=== PATIENT | female | born 1955 | race Caucasian/White ===

== ENCOUNTER 2018-05-24 16:58 | Inpatient (IN) | payer OTHER ==
[~2018-05-24 16:58] MED LIST: NA BICARBONATE 8.4% 50 ML SYG
[2018-05-24 17:30] LABS: WHITE BLOOD COUNT 19.8 10^3/ul (4.8-10.8)
[2018-05-24 17:30] LABS: ABNORMAL IP MESSAGE 1; HEMATOCRIT 29.7 % (37.0-47.0); HEMOGLOBIN 8.8 g/dl (12.0-16.0); MEAN CORPUSCULAR HEMOGLOBIN 28.9 pg (29.0-33.0); MEAN CORPUSCULAR HGB CONC 29.6 g/dl (32.0-37.0); MEAN CORPUSCULAR VOLUME 97.4 fl (82.0-101.0); MEAN PLATELET VOLUME 9.3 fl (7.4-10.4); PLATELET COUNT 473 10^3/UL (140-415); RED BLOOD COUNT 3.05 10^6/ul (4.20-5.40); RED CELL DISTRIBUTION WIDTH 13.7 % (11.5-14.5)
[2018-05-24] MEDS ORDERED: FENTAnyl 50 MCG/ML VIAL IV (17:30)
[2018-05-24] MEDS: VANCOMYCIN 1 GM (PMX) 250 ML IVPB (17:30)
[2018-05-24 17:40] LABS: POSITIVE DIFF @See below
[2018-05-24 17:41] LABS: ADD MAN DIFF? YES
[2018-05-24 17:49] LABS: ALANINE AMINOTRANSFERASE 48 IU/L (13-69); ALBUMIN 2.9 g/dl (3.3-4.9); ALBUMIN/GLOBULIN RATIO 0.87; ALKALINE PHOSPHATASE 358 IU/L (42-121); ANION GAP 15 (8-16); ASPARTATE AMINO TRANSFERASE 52 IU/L (15-46); BILIRUBIN,INDIRECT 0.2 mg/dl (0-1.1); BILIRUBIN,TOTAL 0.2 mg/dl (0.2-1.3); BLOOD UREA NITROGEN 35 mg/dl (7-20); CALCIUM 8.6 mg/dl (8.4-10.2); CARBON DIOXIDE 31 mmol/L (21-31); CHLORIDE 99 mmol/L (97-110); GLUCOSE 295 mg/dl (70-220); MAGNESIUM 2.1 mg/dl (1.7-2.5); PHOSPHORUS 6.4 mg/dl (2.5-4.9); POTASSIUM 4.4 mmol/L (3.5-5.1); SODIUM 141 mmol/L (135-144); TOTAL PROTEIN 6.2 g/dl (6.1-8.1)
[2018-05-24 17:51] LABS: INR 1.05; PROTIME 13.8 Sec (11.9-14.9); PT RATIO 1.1
[2018-05-24 17:52] LABS: ADD UMIC YES; PARTIAL THROMBOPLASTIN TIME 42.7 Sec (25.0-35.0); UR ASCORBIC ACID 40 mg/dL (NEGATIVE); UR BILIRUBIN (Dip) NEGATIVE (NEGATIVE); UR BLOOD (Dip) NEGATIVE (NEGATIVE); UR BUDDING YEAST FEW /HPF (NONE SEEN); UR CLARITY SLIGHTLY CLOUDY (CLEAR); UR COLOR AMBER (YELLOW); UR GLUCOSE (Dip) 2+ mg/dL (NEGATIVE); UR KETONES (Dip) NEGATIVE (NEGATIVE); UR LEUKOCYTE ESTERASE (Dip) NEGATIVE Leu/ul (NEGATIVE); UR MUCUS MODERATE /HPF (NONE SEEN); UR NITRITE (Dip) NEGATIVE (NEGATIVE); UR RBC 5 /HPF (0-5); UR SPECIFIC GRAVITY (Dip) 1.034 (1.003-1.030); UR SQUAMOUS EPITHELIAL CELL FEW /HPF (FEW); UR TOTAL PROTEIN (Dip) 2+ mg/dl (NEGATIVE); UR UROBILINOGEN (Dip) 2+ mg/dL (NEGATIVE); UR WBC 5 /HPF (0-5)
[2018-05-24 17:53] LABS: LACTIC ACID 6.6 mmol/L (0.5-2.0)
[2018-05-24] MEDS: SODIUM CHLORIDE 0.9% 500 ML BAG IV* (17:53)
[2018-05-24] MEDS: SODIUM CHLORIDE 0.9% 1L BAG IV* (17:53)
[2018-05-24 18:02] LABS: TROPONIN-I < 0.010 ng/ml (0.000-0.120)
[2018-05-24] MEDS: CEFEPIME 2GM/50 ML (PMX) 50 ML IVPB (18:02)
[2018-05-24] MEDS: IOHEXOL 100 ML (18:07)
[2018-05-24 18:10] LABS: Allen Test ACCEPTAB; Arterial Base Excess 10.2 mmol/L (-3.0-3); Arterial Blood Gas Oxygen Sat 99.2 mmHG (95.0-98.0); Arterial COHb 0.3 % (0.0-3.0); Arterial Fraction of Oxyhgb 98.6 % (93.0-99.0); Arterial HCO3 35.5 mmol/L (22.0-26.0); Arterial MetHb 0.3 % (0.0-1.5); Arterial pCO2 52.8 mmhg (35-45); MODE VENT - AC; Site Right Radial
[2018-05-24] MEDS: SOD CHLORIDE 0.9% 100 ML (18:28)
[2018-05-24] MEDS: IOHEXOL 350MG/ML 50 ML BTL (18:28)
[2018-05-24] MEDS: ACCU-CHEK XX ×6 (18:30→23:43)
[2018-05-24] MEDS ORDERED: DEXTROSE 50% 50 ML SYRINGE IV ×2 (18:30)
[2018-05-24 19:44] LABS: ANISOCYTOSIS 1+ (0-0); BAND NEUTROPHILS #M 0.9 10^3/ul (0.0-0.6); BAND NEUTROPHILS % (M) 5 % (0-4); ERYTHROBLAST% (NRBC) (M) 1 % (0-0); LYMPHOCYTES #M 2.3 10^3/ul (0.8-2.9); LYMPHOCYTES % (M) 12 % (15-51); METAMYELOCYTES #M 0.1 10^3/ul (0.0-0.0); METAMYELOCYTES %M 1 % (0-0); MONOCYTE #M 1.7 10^3/ul (0.3-0.9); MONOCYTES % (M) 9 % (0-11); MYELOCYTES #M 0.9 10^3/ul (0.0-0.0); MYELOCYTES % (M) 5 % (0-0); PLATELET MORPHOLOGY COMMENT @See below; POLYCHROMASIA 1+ (0-0); REACTIVE LYMPHOCYTES #M 0.5 10^3/ul (0.0-0.0); REACTIVE LYMPHOCYTES% (M) 3 % (0-0); SEGMENTED NEUTROPHILS (M) % 65 % (39-77); SMUDGE%M 8 % (0-0)
[2018-05-24] MEDS: MIDAZOLAM (DRIP) 50 mg/50 mL 50 ML IV (19:55)
[2018-05-24] MEDS ORDERED: ACETAMINOPHEN 650MG/20.3ML CUP PO (20:00)
[2018-05-24] MEDS ORDERED: VANCOMYCIN IV PER PHARMACY XX (20:00)
[2018-05-24] MEDS ORDERED: ACETAMINOPHEN 650 MG SUPP PR (20:00)
[2018-05-24] MEDS ORDERED: MEPERIDINE 25 MG INJ IV (20:00)
[2018-05-24 20:18] LABS: AADO2 Arterial 272.3 mmHg (7.0-24.0); Allen Test ACCEPTAB; Arterial Base Excess 8.6 mmol/L (-3.0-3); Arterial COHb 0.3 % (0.0-3.0); Arterial Fraction of Oxyhgb 95.5 % (93.0-99.0); Arterial MetHb 0.2 % (0.0-1.5); Arterial Total Hemglobin 9.8 g/dl (12.0-18.0); MODE VENT - AC; Site Right Radial; Temperature 35.7 C
[2018-05-24 20:43] LABS: LACTIC ACID 1.5 mmol/L (0.5-2.0)
[2018-05-24] MEDS: VECURONIUM 100 MG in DEXTROSE 5% 100 ML IV (20:51)
[2018-05-24] MEDS: INSULIN HUMAN REGULAR 100 UNIT in SOD CHLORIDE 0.9% 99 ML IV (20:53)
[2018-05-24] MEDS: VANCOMYCIN 1.75 GM in SOD CHLORIDE 0.9% 500 ML IVPB (20:58)
[2018-05-24] MEDS: FUROSEMIDE 20 MG INJ IV (21:58)
[2018-05-25] MEDS: ACCU-CHEK XX ×24 (00:30→23:30)
[2018-05-25 01:15] LABS: LACTIC ACID 1.4 mmol/L (0.5-2.0)
[2018-05-25 01:51] LABS: Allen Test ACCEPTAB; Arterial MetHb 0 % (0.0-1.5); MODE VENT - AC; Site Right Radial
[2018-05-25 02:04] LABS: AADO2 Arterial 340.4 mmHg (7.0-24.0); Arterial Base Excess 11.8 mmol/L (-3.0-3); Arterial Blood Gas Oxygen Sat 94.6 mmHG (95.0-98.0); Arterial COHb 0 % (0.0-3.0); Arterial Fraction of Oxyhgb 94.6 % (93.0-99.0); Arterial HCO3 35.6 mmol/L (22.0-26.0); Arterial Total Hemglobin 10.4 g/dl (12.0-18.0); Arterial pCO2 36.3 mmhg (35-45)
[2018-05-25] MEDS: PIPER-TAZO 3.375 GM IV (PMX) 100 ML IVPB ×3 (02:29→18:04)
[2018-05-25] MEDS ORDERED: PENDING SANTYL ORDER FOR WOUND CARE XX (02:30)
[2018-05-25] MEDS: OCULAR LUBRICANT 3.5 GM OPH OINT BOTH EYES ×4 (03:38→17:42)
[2018-05-25] MEDS: ARTIFICIAL TEARS 15 ML OPH BOTH EYES ×4 (03:38→17:42)
[2018-05-25 03:43] LABS: ADD MAN DIFF? NO
[2018-05-25] MEDS: hydrALAzine 20 MG INJ IV (03:55)
[2018-05-25 04:00] LABS: BASOPHILS % 0.3 % (0.0-2.0); HEMATOCRIT 30.4 % (37.0-47.0); HEMOGLOBIN 9.6 g/dl (12.0-16.0); LYMPHOCYTES # 1.1 10^3/ul (0.8-2.9); LYMPHOCYTES % 7.6 % (15.0-51.0); MEAN CORPUSCULAR HEMOGLOBIN 29.3 pg (29.0-33.0); MEAN CORPUSCULAR HGB CONC 31.6 g/dl (32.0-37.0); MEAN CORPUSCULAR VOLUME 92.7 fl (82.0-101.0); MEAN PLATELET VOLUME 8.9 fl (7.4-10.4); MONOCYTE # 0.8 10^3/ul (0.3-0.9); MONOCYTES % 5.4 % (0.0-11.0); NEUTROPHIL # 12.2 10^3/ul (1.6-7.5); NEUTROPHILS % 84.9 % (39.0-77.0); PLATELET COUNT 453 10^3/UL (140-415); RED BLOOD COUNT 3.28 10^6/ul (4.20-5.40); RED CELL DISTRIBUTION WIDTH 13.4 % (11.5-14.5)
[2018-05-25 04:00] LABS: WHITE BLOOD COUNT 14.4 10^3/ul (4.8-10.8)
[2018-05-25 04:08] LABS: INR 1.04; PROTIME 13.7 Sec (11.9-14.9); PT RATIO 1.1
[2018-05-25 04:09] LABS: PARTIAL THROMBOPLASTIN TIME 41.5 Sec (25.0-35.0)
[2018-05-25 05:33] LABS: AMYLASE 41 U/L (11-123); ANION GAP 10 (8-16); BLOOD UREA NITROGEN 26 mg/dl (7-20); CALCIUM 8.8 mg/dl (8.4-10.2); CARBON DIOXIDE 38 mmol/L (21-31); CHLORIDE 98 mmol/L (97-110); CREATININE 0.41 mg/dl (0.44-1.00); GLUCOSE 207 mg/dl (70-220); MAGNESIUM 1.9 mg/dl (1.7-2.5); POTASSIUM 3.3 mmol/L (3.5-5.1); SODIUM 143 mmol/L (135-144)
[2018-05-25 05:34] LABS: LIPASE < 10 U/L (23-300)
[2018-05-25 05:44] LABS: TROPONIN-I 0.053 ng/ml (0.000-0.120)
[2018-05-25] MEDS: FUROSEMIDE 20 MG INJ IV ×2 (06:06→18:04)
[2018-05-25] MEDS: POTASSIUM CHLORIDE 50 ML IVPB ×4 (06:06→13:38)
[2018-05-25 06:59] LABS: ADD MAN DIFF? NO
[2018-05-25 07:09] LABS: BASOPHILS % 0.2 % (0.0-2.0); HEMATOCRIT 32.3 % (37.0-47.0); HEMOGLOBIN 9.8 g/dl (12.0-16.0); LYMPHOCYTES # 0.9 10^3/ul (0.8-2.9); MEAN CORPUSCULAR HEMOGLOBIN 28.2 pg (29.0-33.0); MEAN CORPUSCULAR HGB CONC 30.3 g/dl (32.0-37.0); MEAN CORPUSCULAR VOLUME 93.1 fl (82.0-101.0); MEAN PLATELET VOLUME 9.1 fl (7.4-10.4); MONOCYTE # 0.6 10^3/ul (0.3-0.9); MONOCYTES % 4.4 % (0.0-11.0); NEUTROPHILS % 87.5 % (39.0-77.0); PLATELET COUNT 410 10^3/UL (140-415); RED BLOOD COUNT 3.47 10^6/ul (4.20-5.40); RED CELL DISTRIBUTION WIDTH 13.4 % (11.5-14.5)
[2018-05-25 07:09] LABS: WHITE BLOOD COUNT 12.5 10^3/ul (4.8-10.8)
[2018-05-25 07:28] LABS: INR 1.02; PROTIME 13.5 Sec (11.9-14.9); PT RATIO 1.1
[2018-05-25 07:29] LABS: ALANINE AMINOTRANSFERASE 47 IU/L (13-69); ALBUMIN 2.9 g/dl (3.3-4.9); ALBUMIN/GLOBULIN RATIO 0.82; ALKALINE PHOSPHATASE 341 IU/L (42-121); ANION GAP 12 (8-16); ASPARTATE AMINO TRANSFERASE 31 IU/L (15-46); BILIRUBIN,INDIRECT 0.3 mg/dl (0-1.1); BILIRUBIN,TOTAL 0.3 mg/dl (0.2-1.3); BLOOD UREA NITROGEN 25 mg/dl (7-20); CALCIUM 8.7 mg/dl (8.4-10.2); CARBON DIOXIDE 38 mmol/L (21-31); CHLORIDE 99 mmol/L (97-110); CREATININE 0.39 mg/dl (0.44-1.00); GLUCOSE 176 mg/dl (70-220); PARTIAL THROMBOPLASTIN TIME 38.4 Sec (25.0-35.0); POTASSIUM 3.1 mmol/L (3.5-5.1); SODIUM 146 mmol/L (135-144); TOTAL PROTEIN 6.4 g/dl (6.1-8.1)
[2018-05-25 07:30] LABS: MAGNESIUM 1.9 mg/dl (1.7-2.5)
[2018-05-25 07:30] LABS: PHOSPHORUS 3.4 mg/dl (2.5-4.9)
[2018-05-25 07:32] LABS: AMYLASE < 30 U/L (11-123); LIPASE < 10 U/L (23-300)
[2018-05-25 07:43] LABS: TROPONIN-I 0.069 ng/ml (0.000-0.120)
[2018-05-25 07:44] LABS: AADO2 Arterial 459.4 mmHg (7.0-24.0); Allen Test ACCEPTAB; Arterial Base Excess 14.3 mmol/L (-3.0-3); Arterial Blood Gas Oxygen Sat 95.5 mmHG (95.0-98.0); Arterial COHb 0.1 % (0.0-3.0); Arterial Fraction of Oxyhgb 95.4 % (93.0-99.0); Arterial HCO3 40.9 mmol/L (22.0-26.0); Arterial MetHb 0 % (0.0-1.5); Arterial Total Hemglobin 10.8 g/dl (12.0-18.0); Arterial pCO2 52.8 mmhg (35-45); MODE VENT - AC; Site Right Radial; Temperature 33.2 C
[2018-05-25] MEDS: VANCOMYCIN 1.25 GM in SOD CHLORIDE 0.9% 250 ML IVPB ×2 (08:56→21:14)
[2018-05-25 12:30] LABS: ADD MAN DIFF? NO
[2018-05-25 12:34] LABS: BASOPHILS % 0.3 % (0.0-2.0); HEMATOCRIT 30.9 % (37.0-47.0); HEMOGLOBIN 9.4 g/dl (12.0-16.0); LYMPHOCYTES # 0.9 10^3/ul (0.8-2.9); LYMPHOCYTES % 7.7 % (15.0-51.0); MEAN CORPUSCULAR HEMOGLOBIN 28.1 pg (29.0-33.0); MEAN CORPUSCULAR HGB CONC 30.4 g/dl (32.0-37.0); MEAN CORPUSCULAR VOLUME 92.5 fl (82.0-101.0); MEAN PLATELET VOLUME 8.8 fl (7.4-10.4); MONOCYTE # 0.6 10^3/ul (0.3-0.9); MONOCYTES % 4.9 % (0.0-11.0); NEUTROPHIL # 10.3 10^3/ul (1.6-7.5); PLATELET COUNT 424 10^3/UL (140-415); RED BLOOD COUNT 3.34 10^6/ul (4.20-5.40); RED CELL DISTRIBUTION WIDTH 13.5 % (11.5-14.5)
[2018-05-25 12:34] LABS: WHITE BLOOD COUNT 11.9 10^3/ul (4.8-10.8)
[2018-05-25 12:56] LABS: INR 1.03; PROTIME 13.6 Sec (11.9-14.9); PT RATIO 1.1
[2018-05-25 12:57] LABS: PARTIAL THROMBOPLASTIN TIME 40.9 Sec (25.0-35.0)
[2018-05-25 13:00] LABS: ANION GAP 13 (8-16); BLOOD UREA NITROGEN 23 mg/dl (7-20); CALCIUM 8.5 mg/dl (8.4-10.2); CARBON DIOXIDE 37 mmol/L (21-31); CHLORIDE 99 mmol/L (97-110); CREATININE 0.33 mg/dl (0.44-1.00); GLUCOSE 125 mg/dl (70-220); MAGNESIUM 1.8 mg/dl (1.7-2.5); PHOSPHORUS 3.6 mg/dl (2.5-4.9); POTASSIUM 3.7 mmol/L (3.5-5.1); SODIUM 145 mmol/L (135-144)
[2018-05-25 13:04] LABS: AMYLASE < 30 U/L (11-123); LIPASE < 10 U/L (23-300)
[2018-05-25 13:10] LABS: TROPONIN-I 0.043 ng/ml (0.000-0.120)
[2018-05-25 13:54] LABS: AADO2 Arterial 238.4 mmHg (7.0-24.0); Allen Test ACCEPTAB; Arterial Base Excess 11.7 mmol/L (-3.0-3); Arterial Blood Gas Oxygen Sat 96.5 mmHG (95.0-98.0); Arterial COHb 0.3 % (0.0-3.0); Arterial HCO3 37.7 mmol/L (22.0-26.0); Arterial MetHb 0.2 % (0.0-1.5); Arterial Total Hemglobin 10.7 g/dl (12.0-18.0); Arterial pCO2 47.7 mmhg (35-45); MODE VENT - AC; Site Right Radial; Temperature 33.1 C
[2018-05-25] MEDS: VECURONIUM 100 MG in DEXTROSE 5% 100 ML IV ×2 (14:50→17:39)
[2018-05-25] MEDS: MIDAZOLAM (DRIP) 50 mg/50 mL 50 ML IV (17:30)
[2018-05-25 18:56] LABS: ADD MAN DIFF? NO
[2018-05-25 19:12] LABS: WHITE BLOOD COUNT 11.1 10^3/ul (4.8-10.8)
[2018-05-25 19:12] LABS: BASOPHILS % 0.1 % (0.0-2.0); HEMATOCRIT 30.9 % (37.0-47.0); HEMOGLOBIN 9.6 g/dl (12.0-16.0); LYMPHOCYTES # 0.9 10^3/ul (0.8-2.9); LYMPHOCYTES % 7.8 % (15.0-51.0); MEAN CORPUSCULAR HEMOGLOBIN 28.8 pg (29.0-33.0); MEAN CORPUSCULAR HGB CONC 31.1 g/dl (32.0-37.0); MEAN CORPUSCULAR VOLUME 92.8 fl (82.0-101.0); MEAN PLATELET VOLUME 8.9 fl (7.4-10.4); MONOCYTE # 0.6 10^3/ul (0.3-0.9); NEUTROPHIL # 9.6 10^3/ul (1.6-7.5); NEUTROPHILS % 85.9 % (39.0-77.0); PLATELET COUNT 426 10^3/UL (140-415); RED BLOOD COUNT 3.33 10^6/ul (4.20-5.40); RED CELL DISTRIBUTION WIDTH 13.5 % (11.5-14.5)
[2018-05-25 19:20] LABS: ANION GAP 11 (8-16); BLOOD UREA NITROGEN 21 mg/dl (7-20); CALCIUM 8.5 mg/dl (8.4-10.2); CARBON DIOXIDE 36 mmol/L (21-31); CHLORIDE 100 mmol/L (97-110); CREATININE 0.37 mg/dl (0.44-1.00); GLUCOSE 120 mg/dl (70-220); MAGNESIUM 1.8 mg/dl (1.7-2.5); PHOSPHORUS 3.6 mg/dl (2.5-4.9); POTASSIUM 3.4 mmol/L (3.5-5.1); SODIUM 144 mmol/L (135-144)
[2018-05-25 19:24] LABS: INR 1.06; PROTIME 13.9 Sec (11.9-14.9); PT RATIO 1.1
[2018-05-25 19:25] LABS: PARTIAL THROMBOPLASTIN TIME 42.4 Sec (25.0-35.0)
[2018-05-25 19:30] LABS: TROPONIN-I 0.028 ng/ml (0.000-0.120)
[2018-05-25 19:39] LABS: AMYLASE < 30 U/L (11-123); LIPASE < 10 U/L (23-300)
[2018-05-25] MEDS: ACETAMINOPHEN 650 MG SUPP PR (20:00)
[2018-05-25] MEDS: ACETAMINOPHEN 650MG/20.3ML CUP PO (21:12)
[2018-05-25 22:14] LABS: AADO2 Arterial 171.9 mmHg (7.0-24.0); Allen Test ACCEPTAB; Arterial Base Excess 11.7 mmol/L (-3.0-3); Arterial Blood Gas Oxygen Sat 96.1 mmHG (95.0-98.0); Arterial COHb 0 % (0.0-3.0); Arterial HCO3 37.3 mmol/L (22.0-26.0); Arterial MetHb 0.1 % (0.0-1.5); Arterial Total Hemglobin 11.1 g/dl (12.0-18.0); Arterial pCO2 45.6 mmhg (35-45); MODE VENT - AC; Site Right Radial
[2018-05-26] MEDS ORDERED: FENTAnyl (DRIP) 1000 mcg/100mL 100 ML IV
[2018-05-26] MEDS: OCULAR LUBRICANT 3.5 GM OPH OINT BOTH EYES ×4 (01:17→17:10)
[2018-05-26] MEDS: ARTIFICIAL TEARS 15 ML OPH BOTH EYES ×4 (01:18→17:10)
[2018-05-26] MEDS: ACCU-CHEK XX ×24 (01:20→23:30)
[2018-05-26 01:33] LABS: ADD MAN DIFF? NO
[2018-05-26 01:34] LABS: BASOPHILS % 0.1 % (0.0-2.0); HEMATOCRIT 27.3 % (37.0-47.0); HEMOGLOBIN 8.5 g/dl (12.0-16.0); LYMPHOCYTES # 0.9 10^3/ul (0.8-2.9); LYMPHOCYTES % 8.7 % (15.0-51.0); MEAN CORPUSCULAR HEMOGLOBIN 28.8 pg (29.0-33.0); MEAN CORPUSCULAR HGB CONC 31.1 g/dl (32.0-37.0); MEAN CORPUSCULAR VOLUME 92.5 fl (82.0-101.0); MONOCYTE # 0.5 10^3/ul (0.3-0.9); MONOCYTES % 4.8 % (0.0-11.0); NEUTROPHIL # 8.6 10^3/ul (1.6-7.5); NEUTROPHILS % 85.6 % (39.0-77.0); PLATELET COUNT 398 10^3/UL (140-415); RED BLOOD COUNT 2.95 10^6/ul (4.20-5.40); RED CELL DISTRIBUTION WIDTH 13.4 % (11.5-14.5)
[2018-05-26 01:52] LABS: ANION GAP 23 (8-16); BLOOD UREA NITROGEN 20 mg/dl (7-20); CALCIUM 7.8 mg/dl (8.4-10.2); CARBON DIOXIDE 36 mmol/L (21-31); CHLORIDE 99 mmol/L (97-110); GLUCOSE 159 mg/dl (70-220); MAGNESIUM 1.6 mg/dl (1.7-2.5); PHOSPHORUS 3.6 mg/dl (2.5-4.9); POTASSIUM 3.1 mmol/L (3.5-5.1); SODIUM 155 mmol/L (135-144)
[2018-05-26] MEDS: PIPER-TAZO 3.375 GM IV (PMX) 100 ML IVPB ×3 (01:54→18:43)
[2018-05-26 01:57] LABS: INR 1.09; PROTIME 14.3 Sec (11.9-14.9); PT RATIO 1.1
[2018-05-26 01:58] LABS: PARTIAL THROMBOPLASTIN TIME 39.1 Sec (25.0-35.0)
[2018-05-26 01:59] LABS: AMYLASE < 30 U/L (11-123); LIPASE < 10 U/L (23-300)
[2018-05-26] MEDS: ACETAMINOPHEN 650MG/20.3ML CUP PO ×4 (02:00→21:12)
[2018-05-26 02:04] LABS: TROPONIN-I 0.013 ng/ml (0.000-0.120)
[2018-05-26] MEDS: ACETAMINOPHEN 650 MG SUPP PR ×4 (02:35→20:00)
[2018-05-26 02:47] LABS: AADO2 Arterial 227.7 mmHg (7.0-24.0); Allen Test ACCEPTAB; Arterial Base Excess 12.2 mmol/L (-3.0-3); Arterial Blood Gas Oxygen Sat 97.5 mmHG (95.0-98.0); Arterial COHb 0.3 % (0.0-3.0); Arterial HCO3 36.8 mmol/L (22.0-26.0); Arterial MetHb 0.2 % (0.0-1.5); Arterial Total Hemglobin 10.3 g/dl (12.0-18.0); Arterial pCO2 42.4 mmhg (35-45); MODE VENT - AC; Site Right Radial
[2018-05-26] MEDS: SOD CHLORIDE 0.9% 500 ML IV (03:38)
[2018-05-26 05:09] LABS: ADD MAN DIFF? NO
[2018-05-26 05:12] LABS: WHITE BLOOD COUNT 9.2 10^3/ul (4.8-10.8)
[2018-05-26 05:12] LABS: BASOPHILS % 0.1 % (0.0-2.0); HEMATOCRIT 26.2 % (37.0-47.0); HEMOGLOBIN 8.1 g/dl (12.0-16.0); LYMPHOCYTES % 11.1 % (15.0-51.0); MEAN CORPUSCULAR HEMOGLOBIN 28.6 pg (29.0-33.0); MEAN CORPUSCULAR HGB CONC 30.9 g/dl (32.0-37.0); MEAN CORPUSCULAR VOLUME 92.6 fl (82.0-101.0); MONOCYTE # 0.5 10^3/ul (0.3-0.9); MONOCYTES % 5.2 % (0.0-11.0); NEUTROPHIL # 7.6 10^3/ul (1.6-7.5); NEUTROPHILS % 82.7 % (39.0-77.0); PLATELET COUNT 400 10^3/UL (140-415); RED BLOOD COUNT 2.83 10^6/ul (4.20-5.40); RED CELL DISTRIBUTION WIDTH 13.3 % (11.5-14.5)
[2018-05-26] MEDS: FUROSEMIDE 20 MG INJ IV ×3 (05:25→17:13)
[2018-05-26] MEDS: MIDAZOLAM (DRIP) 50 mg/50 mL 50 ML IV (05:25)
[2018-05-26 05:33] LABS: INR 1.12; PROTIME 14.6 Sec (11.9-14.9); PT RATIO 1.1
[2018-05-26 05:34] LABS: PARTIAL THROMBOPLASTIN TIME 39.9 Sec (25.0-35.0)
[2018-05-26 05:45] LABS: LACTIC ACID 0.9 mmol/L (0.5-2.0)
[2018-05-26 05:53] LABS: PHOSPHORUS 3.4 mg/dl (2.5-4.9)
[2018-05-26 05:53] LABS: MAGNESIUM 1.6 mg/dl (1.7-2.5)
[2018-05-26 05:59] LABS: ALANINE AMINOTRANSFERASE 41 IU/L (13-69); ALBUMIN 2.3 g/dl (3.3-4.9); ALBUMIN/GLOBULIN RATIO 0.79; ALKALINE PHOSPHATASE 245 IU/L (42-121); ANION GAP 8 (8-16); ASPARTATE AMINO TRANSFERASE 19 IU/L (15-46); BILIRUBIN,INDIRECT 0.2 mg/dl (0-1.1); BILIRUBIN,TOTAL 0.2 mg/dl (0.2-1.3); BLOOD UREA NITROGEN 22 mg/dl (7-20); CARBON DIOXIDE 35 mmol/L (21-31); CHLORIDE 100 mmol/L (97-110); CREATININE 0.39 mg/dl (0.44-1.00); GLUCOSE 107 mg/dl (70-220); POTASSIUM 3.2 mmol/L (3.5-5.1); SODIUM 140 mmol/L (135-144); TOTAL PROTEIN 5.2 g/dl (6.1-8.1)
[2018-05-26 06:02] LABS: TROPONIN-I 0.018 ng/ml (0.000-0.120)
[2018-05-26 06:03] LABS: AMYLASE < 30 U/L (11-123); LIPASE < 10 U/L (23-300)
[2018-05-26] MEDS: POTASSIUM CHLORIDE 50 ML IVPB ×5 (06:38→21:13)
[2018-05-26] MEDS: VANCOMYCIN 1.25 GM in SOD CHLORIDE 0.9% 250 ML IVPB ×2 (09:00→21:12)
[2018-05-26 09:33] LABS: VANCOMYCIN,TROUGH 31.8 ug/ml (10.0-20.0)
[2018-05-26 09:38] LABS: AADO2 Arterial 186.9 mmHg (7.0-24.0); Allen Test ACCEPTAB; Arterial Base Excess 11.2 mmol/L (-3.0-3); Arterial Blood Gas Oxygen Sat 94.8 mmHG (95.0-98.0); Arterial COHb 0.3 % (0.0-3.0); Arterial Fraction of Oxyhgb 94.3 % (93.0-99.0); Arterial HCO3 33.4 mmol/L (22.0-26.0); Arterial MetHb 0.2 % (0.0-1.5); Arterial Total Hemglobin 9.3 g/dl (12.0-18.0); Arterial pCO2 32.5 mmhg (35-45); MODE VENT - AC; Site Right Radial; Temperature 35.8 C
[2018-05-26 12:14] LABS: ADD MAN DIFF? NO
[2018-05-26 12:18] LABS: BASOPHILS % 0.1 % (0.0-2.0); HEMATOCRIT 27.4 % (37.0-47.0); HEMOGLOBIN 8.7 g/dl (12.0-16.0); LYMPHOCYTES # 1.3 10^3/ul (0.8-2.9); LYMPHOCYTES % 12.2 % (15.0-51.0); MEAN CORPUSCULAR HEMOGLOBIN 29.2 pg (29.0-33.0); MEAN CORPUSCULAR HGB CONC 31.8 g/dl (32.0-37.0); MEAN CORPUSCULAR VOLUME 91.9 fl (82.0-101.0); MONOCYTE # 0.8 10^3/ul (0.3-0.9); MONOCYTES % 7.7 % (0.0-11.0); NEUTROPHIL # 8.3 10^3/ul (1.6-7.5); NEUTROPHILS % 78.6 % (39.0-77.0); PLATELET COUNT 436 10^3/UL (140-415); RED BLOOD COUNT 2.98 10^6/ul (4.20-5.40); RED CELL DISTRIBUTION WIDTH 13.6 % (11.5-14.5)
[2018-05-26 12:18] LABS: WHITE BLOOD COUNT 10.6 10^3/ul (4.8-10.8)
[2018-05-26 12:39] LABS: ANION GAP 12 (8-16); BLOOD UREA NITROGEN 24 mg/dl (7-20); CARBON DIOXIDE 32 mmol/L (21-31); CHLORIDE 99 mmol/L (97-110); CREATININE 0.48 mg/dl (0.44-1.00); GLUCOSE 133 mg/dl (70-220); LIPASE 16 U/L (23-300); MAGNESIUM 1.6 mg/dl (1.7-2.5); PHOSPHORUS 3.1 mg/dl (2.5-4.9); POTASSIUM 3.4 mmol/L (3.5-5.1); SODIUM 140 mmol/L (135-144)
[2018-05-26 12:47] LABS: INR 1.12; PROTIME 14.6 Sec (11.9-14.9); PT RATIO 1.1
[2018-05-26 12:49] LABS: PARTIAL THROMBOPLASTIN TIME 39.4 Sec (25.0-35.0)
[2018-05-26 12:50] LABS: TROPONIN-I 0.022 ng/ml (0.000-0.120)
[2018-05-26] MEDS: MEPERIDINE 25 MG INJ IV (13:01)
[2018-05-26 13:05] LABS: AMYLASE < 30 U/L (11-123)
[2018-05-26] MEDS: LORAZEPAM 2 MG INJ IV (14:44)
[2018-05-26] MEDS ORDERED: MIDAZOLAM (DRIP) 50 mg/50 mL 50 ML IV (16:30)
[2018-05-26] MEDS: MAGNESIUM SULFATE 2 GM/50 ML 50 ML IVPB (17:00)
[2018-05-26] MEDS: LEVETIRACETAM 500 MG (PMX) 100 ML IVPB (21:12)
[2018-05-27] MEDS: SOD CHLORIDE 0.9% 500 ML IV ×2 (00:26→05:53)
[2018-05-27] MEDS: ARTIFICIAL TEARS 15 ML OPH BOTH EYES ×4 (00:27→17:41)
[2018-05-27] MEDS: OCULAR LUBRICANT 3.5 GM OPH OINT BOTH EYES ×4 (00:27→17:41)
[2018-05-27] MEDS: ACCU-CHEK XX ×3 (00:30→02:32)
[2018-05-27] MEDS: ACETAMINOPHEN 650 MG SUPP PR ×2 (02:00→08:00)
[2018-05-27] MEDS ORDERED: ALBUMIN HUMAN 25% 100 ML (02:20)
[2018-05-27] MEDS: ACETAMINOPHEN 650MG/20.3ML CUP PO ×2 (02:21→08:00)
[2018-05-27] MEDS: ALBUMIN HUMAN 25% 100 ML IV ×2 (02:23→02:45)
[2018-05-27] MEDS: PIPER-TAZO 3.375 GM IV (PMX) 100 ML IVPB ×3 (02:23→17:41)
[2018-05-27] MEDS ORDERED: DEXTROSE 50% 50 ML SYRINGE IV ×2 (03:00)
[2018-05-27] MEDS ORDERED: GLUCOSE GEL 15 GRAM TUBE BUCCAL (03:00)
[2018-05-27] MEDS ORDERED: GLUCOSE GEL 15 GRAM TUBE PO ×2 (03:00)
[2018-05-27] MEDS ORDERED: GLUCAGON 1 MG INJ IM (03:00)
[2018-05-27] MEDS: MEPERIDINE 25 MG INJ IV (03:02)
[2018-05-27] MEDS: INSULIN ASPART [NOVOLOG] 3 ML PEN SC ×5 (05:00→21:07)
[2018-05-27] MEDS: FUROSEMIDE 20 MG INJ IV ×2 (05:56→17:44)
[2018-05-27 06:18] LABS: ADD MAN DIFF? NO
[2018-05-27 06:25] LABS: BASOPHILS % 0.1 % (0.0-2.0); HEMATOCRIT 24.1 % (37.0-47.0); HEMOGLOBIN 7.5 g/dl (12.0-16.0); LYMPHOCYTES # 1.3 10^3/ul (0.8-2.9); LYMPHOCYTES % 16.3 % (15.0-51.0); MEAN CORPUSCULAR HEMOGLOBIN 28.5 pg (29.0-33.0); MEAN CORPUSCULAR HGB CONC 31.1 g/dl (32.0-37.0); MEAN CORPUSCULAR VOLUME 91.6 fl (82.0-101.0); MEAN PLATELET VOLUME 9.1 fl (7.4-10.4); MONOCYTE # 0.6 10^3/ul (0.3-0.9); MONOCYTES % 7.7 % (0.0-11.0); NEUTROPHIL # 6.1 10^3/ul (1.6-7.5); NEUTROPHILS % 74.8 % (39.0-77.0); PLATELET COUNT 375 10^3/UL (140-415); RED BLOOD COUNT 2.63 10^6/ul (4.20-5.40); RED CELL DISTRIBUTION WIDTH 14.4 % (11.5-14.5)
[2018-05-27 06:25] LABS: WHITE BLOOD COUNT 8.2 10^3/ul (4.8-10.8)
[2018-05-27 06:42] LABS: ALANINE AMINOTRANSFERASE 29 IU/L (13-69); ALBUMIN 2.7 g/dl (3.3-4.9); ALBUMIN/GLOBULIN RATIO 0.93; ALKALINE PHOSPHATASE 197 IU/L (42-121); ANION GAP 9 (8-16); ASPARTATE AMINO TRANSFERASE 18 IU/L (15-46); BILIRUBIN,INDIRECT 0.3 mg/dl (0-1.1); BILIRUBIN,TOTAL 0.3 mg/dl (0.2-1.3); BLOOD UREA NITROGEN 22 mg/dl (7-20); CALCIUM 8.2 mg/dl (8.4-10.2); CARBON DIOXIDE 34 mmol/L (21-31); CHLORIDE 102 mmol/L (97-110); CREATININE 0.57 mg/dl (0.44-1.00); GLUCOSE 114 mg/dl (70-220); MAGNESIUM 2.2 mg/dl (1.7-2.5); PHOSPHORUS 2.8 mg/dl (2.5-4.9); POTASSIUM 3.2 mmol/L (3.5-5.1); SODIUM 142 mmol/L (135-144); TOTAL PROTEIN 5.6 g/dl (6.1-8.1)
[2018-05-27] MEDS: LEVETIRACETAM 1500 MG (PMX) 100 ML IVPB ×2 (08:56→20:57)
[2018-05-27] MEDS: POTASSIUM CHLORIDE 50 ML IVPB ×3 (10:43→13:16)
[2018-05-27] MEDS: LORAZEPAM 2 MG INJ IV (14:58)
[2018-05-27] MEDS: PHENYTOIN 1,250 MG in SOD CHLORIDE 0.9% 150 ML IV (16:40)
[2018-05-27] MEDS: VANCOMYCIN 1.5 GM in SOD CHLORIDE 0.9% 250 ML IVPB (20:58)
[2018-05-27] MEDS: PHENYTOIN 100 MG INJ IV (22:00)
[2018-05-28] MEDS: OCULAR LUBRICANT 3.5 GM OPH OINT BOTH EYES ×3 (00:32→12:49)
[2018-05-28] MEDS: ARTIFICIAL TEARS 15 ML OPH BOTH EYES ×3 (00:33→12:49)
[2018-05-28] MEDS: INSULIN ASPART [NOVOLOG] 3 ML PEN SC ×4 (00:36→12:54)
[2018-05-28] MEDS: ACCU-CHEK XX (02:24)
[2018-05-28] MEDS: PIPER-TAZO 3.375 GM IV (PMX) 100 ML IVPB ×2 (02:35→09:38)
[2018-05-28] MEDS: PHENYTOIN 100 MG INJ IV ×2 (05:21→14:30)
[2018-05-28] MEDS: FUROSEMIDE 20 MG INJ IV (05:21)
[2018-05-28 05:42] LABS: ADD MAN DIFF? NO
[2018-05-28 05:50] LABS: WHITE BLOOD COUNT 7.6 10^3/ul (4.8-10.8)
[2018-05-28 05:50] LABS: BASOPHILS % 0.1 % (0.0-2.0); EOSINOPHILS % 0.1 % (0.0-7.0); HEMATOCRIT 25.1 % (37.0-47.0); HEMOGLOBIN 7.8 g/dl (12.0-16.0); LYMPHOCYTES # 1.4 10^3/ul (0.8-2.9); LYMPHOCYTES % 18.6 % (15.0-51.0); MEAN CORPUSCULAR HGB CONC 31.1 g/dl (32.0-37.0); MEAN CORPUSCULAR VOLUME 93.3 fl (82.0-101.0); MONOCYTE # 0.6 10^3/ul (0.3-0.9); MONOCYTES % 7.3 % (0.0-11.0); NEUTROPHIL # 5.5 10^3/ul (1.6-7.5); NEUTROPHILS % 72.7 % (39.0-77.0); NUCLEATED RED BLOOD CELLS% 0.3 /100WBC (0.0-0.0); PLATELET COUNT 324 10^3/UL (140-415); RED BLOOD COUNT 2.69 10^6/ul (4.20-5.40); RED CELL DISTRIBUTION WIDTH 14.4 % (11.5-14.5)
[2018-05-28] MEDS: LEVETIRACETAM 1500 MG (PMX) 100 ML IVPB (09:39)
[2018-05-28] MEDS: ALBUTEROL 0.083% (NEB) 2.5 MG/3 ML AMP HHN (13:25)
[2018-05-28] MEDS: ACETYLCYSTEINE 20% 4 ML VIAL NEB ×2 (13:37→13:38)
[2018-05-28 13:48] LABS: AADO2 Arterial 72.6 mmHg (7.0-24.0); Allen Test ACCEPTAB; Arterial Base Excess 8.9 mmol/L (-3.0-3); Arterial Blood Gas Oxygen Sat 97.1 mmHG (95.0-98.0); Arterial COHb 0.1 % (0.0-3.0); Arterial Fraction of Oxyhgb 96.7 % (93.0-99.0); Arterial MetHb 0.3 % (0.0-1.5); Arterial Total Hemglobin 8.2 g/dl (12.0-18.0); Arterial pCO2 37.8 mmhg (35-45); MODE VENT - AC; Site Right Radial
[2018-05-28] MEDS: INSULIN GLARGINE [LANTus] (100 UNITS/ML) SYG SC (14:32)
[2018-05-28] MEDS: morphine (DRIP) 100 MG/100 ML 100 ML IV (17:52)
[2018-05-28] MEDS ORDERED: ALBUTEROL HFA 8 GM INHALER INH (20:00)
[2018-05-28] MEDS ORDERED: INSULIN GLARGINE [LANTus] (100 UNITS/ML) SYG SC (20:00)
[2018-05-29] MEDS ORDERED: ACCU-CHEK XX (02:00)
[2018-05-29] MEDS: morphine (DRIP) 100 MG/100 ML 100 ML IV ×2 (07:53→18:45)
[2018-05-29] MEDS ORDERED: FUROSEMIDE 40 MG INJ (11:20)
[2018-05-29] MEDS: FUROSEMIDE 40 MG INJ IV (11:42)
[2018-05-30] MEDS: morphine (DRIP) 100 MG/100 ML 100 ML IV ×2 (05:26→15:49)
[2018-05-31] MEDS: morphine (DRIP) 100 MG/100 ML 100 ML IV ×3 (01:26→20:33)
[2018-05-31] MEDS ORDERED: ARTIFICIAL TEARS 15 ML OPH BOTH EYES (14:00)
[2018-05-31] MEDS ORDERED: DIMETHICONE STICK TOP (14:00)
[2018-05-31] MEDS ORDERED: ONDANSETRON 4 MG INJ IV (14:00)
[2018-05-31] MEDS: LORAZEPAM 2 MG INJ IV ×2 (15:21→23:32)
[2018-06-01] MEDS: ATROPINE 1% 5 ML OPH SL (03:54)
[2018-06-01] MEDS: morphine (DRIP) 100 MG/100 ML 100 ML IV ×3 (04:44→21:30)
[2018-06-01] MEDS: LORAZEPAM 2 MG INJ IV ×4 (07:00→23:14)
[2018-06-01] MEDS ORDERED: VITAMIN A & D 5 GM OINT PACKET TOP (20:49)
== END 2018-06-02 03:15 | disposition expired | DRG 870 ==
LOC: ICU 18:05 → MS1 05-29 11:50 → E/R 16:58
PROC: 5A1955Z Respiratory Ventilation, Greater than 96 Consecutive Hours (ICD-10-PCS; principal; 2018-05-24)
DX: A41.89 Other specified sepsis (principal); R65.21 Severe sepsis with septic shock; J69.0 Pneumonitis due to inhalation of food and vomit; J96.00 Acute respiratory failure, unspecified whether with hypoxia or hypercapnia; I50.31 Acute diastolic (congestive) heart failure; G93.1 Anoxic brain damage, not elsewhere classified; Z99.11 Dependence on respirator [ventilator] status; L03.115 Cellulitis of right lower limb; J98.11 Atelectasis; D64.9 Anemia, unspecified; E11.9 Type 2 diabetes mellitus without complications; G40.909 Epilepsy, unspecified, not intractable, without status epilepticus; I46.9 Cardiac arrest, cause unspecified; I11.0 Hypertensive heart disease with heart failure; M27.2 Inflammatory conditions of jaws; T81.4XXD Infection following a procedure, subsequent encounter; S06.9X0D Unspecified intracranial injury without loss of consciousness, subsequent encounter; V03.90XD Pedestrian on foot injured in collision with car, pick-up truck or van, unspecified whether traffic or nontraffic accident, subsequent encounter; Z66 Do not resuscitate; Z51.5 Encounter for palliative care; Z93.0 Tracheostomy status; Z93.1 Gastrostomy status; Z89.512 Acquired absence of left leg below knee; Z79.4 Long term (current) use of insulin
CPT/HCPCS: 36415; 36600; 70450; 71045; 71275; 76604; 80048; 80053; 80202; 81001; 82150; 82803; 82962; 83605; 83690; 83735; 84100; 84484; 85025; 85384; 85610; 85730; 87040; 87070; 87075; 87081; 87086; 89220; 93005; 93306; 94002; 94003; 94640; 94664; 95819; 96374; 99291-25